=== PATIENT | female | born 1950 | race Caucasian/White ===

== ENCOUNTER → 2023-12-10 09:39 | Outpatient (REF) | payer MEDICARE, SELFPAY | LOC: RAD 09:39 | PROVIDERS: ATTENDING PHYSICIAN Family Medicine | DX: R22.9 Localized swelling, mass and lump, unspecified (principal) | CPT/HCPCS: 93931 ==

== ENCOUNTER → 2024-03-13 06:55 | Outpatient (REF) | payer MEDICARE, SELFPAY | LOC: WDC 06:55 | PROVIDERS: ATTENDING PHYSICIAN Obstetrics & Gynecology; FAMILY PHYSICIAN Family Medicine | DX: Z12.31 Encounter for screening mammogram for malignant neoplasm of breast (principal) | CPT/HCPCS: 77063; 77067 ==

== ENCOUNTER → 2024-04-13 06:49 | Outpatient (REF) | payer MEDICARE, SELFPAY | LOC: RCS 06:49 | PROVIDERS: ATTENDING PHYSICIAN Internal Medicine Interventional Cardiology; FAMILY PHYSICIAN Family Medicine | DX: R00.2 Palpitations (principal); R42 Dizziness and giddiness | CPT/HCPCS: 93306 ==

== ENCOUNTER → 2024-04-22 06:56 | Outpatient (REF) | payer MEDICARE, SELFPAY | LOC: RCS 06:56 | PROVIDERS: ATTENDING PHYSICIAN Internal Medicine Interventional Cardiology; FAMILY PHYSICIAN Family Medicine | DX: R00.2 Palpitations (principal); R42 Dizziness and giddiness; R07.89 Other chest pain | CPT/HCPCS: 78452; 93017; A9500 ==

== ENCOUNTER → 2024-06-19 06:44 | Outpatient (REF) | payer MEDICARE, SELFPAY ==
[2024-06-19 08:03] LABS: ALT (SGPT) 68 U/L (0-35); AST (SGOT) 54 U/L (14-36); Albumin 4.6 g/dl (3.5-5.0); Alkaline Phosphatase 60 U/L (38-126); Blood Urea Nitrogen 12 mg/dl (7-17); Calcium 9.7 mg/dl (8.4-10.2); Carbon Dioxide 27 mmol/L (22-30); Chloride 94 mmol/L (98-107); Glucose 96 mg/dl (70-99); HDL Cholesterol 73 mg/dl; LDL Cholesterol, Calculated 119 mg/dl; Potassium 4.9 mmol/L (3.5-5.1); Sodium 135 mmol/L (135-145); Total Bilirubin 0.3 mg/dl (0.2-1.3); Total Cholesterol 212 mg/dl (50-199); Total Protein 7.5 g/dl (6.3-8.2); Triglyceride 102 mg/dl (10-149); Very Low Density Lipoprotein 20 mg/dl (0-30); eGFR > 60.00
[2024-06-19 09:03] LABS: Glycohemoglobin (HgbA1c) 5.7 % (4.0-5.6)
[2024-06-19 10:45] LABS: CRP, Highly Sensitive < 0.34 mg/L
[2024-06-21 01:47] LABS: Apolipoprotein B 110 mg/dL (60-117)
[2024-06-21 02:16] LABS: Lipoprotein a (Lp a) 76 mg/dL (<=29)
== END ==
LOC: REG 06:44
PROVIDERS: ATTENDING PHYSICIAN Internal Medicine Interventional Cardiology; FAMILY PHYSICIAN Family Medicine
DX: E78.2 Mixed hyperlipidemia (principal); R73.09 Other abnormal glucose; Z82.49 Family history of ischemic heart disease and other diseases of the circulatory system
CPT/HCPCS: 36415; 80053; 80061; 82172; 83036; 83695; 86141

== ENCOUNTER → 2024-09-21 07:34 | Outpatient (REF) | payer MEDICARE, SELFPAY | LOC: RAD 07:34 | PROVIDERS: ATTENDING PHYSICIAN Family Medicine | DX: R74.8 Abnormal levels of other serum enzymes (principal) | CPT/HCPCS: 76700 ==

== ENCOUNTER → 2024-09-28 07:38 | Outpatient (REF) | payer MEDICARE, SELFPAY | LOC: RAD 07:38 | PROVIDERS: ATTENDING PHYSICIAN Family Medicine | DX: J90 Pleural effusion, not elsewhere classified (principal); R05.3 Chronic cough | CPT/HCPCS: 71046 ==

== ENCOUNTER → 2024-12-11 07:19 | Outpatient (REF) | payer MEDICARE, SELFPAY | LOC: PAVMRI 07:19 | PROVIDERS: ATTENDING PHYSICIAN Family Medicine | DX: R74.8 Abnormal levels of other serum enzymes (principal); K76.9 Liver disease, unspecified | CPT/HCPCS: 74183; A9575 ==

== ENCOUNTER → 2025-03-17 08:10 | Outpatient (REF) | payer MEDICARE, SELFPAY | LOC: WDC 08:10 | PROVIDERS: ATTENDING PHYSICIAN Obstetrics & Gynecology; FAMILY PHYSICIAN Family Medicine | DX: Z12.31 Encounter for screening mammogram for malignant neoplasm of breast (principal) | CPT/HCPCS: 77063; 77067 ==

== ENCOUNTER → 2025-07-06 06:33 | Outpatient (REF) | payer MEDICARE, SELFPAY | LOC: MRI 06:33 | PROVIDERS: ATTENDING PHYSICIAN Specialist; FAMILY PHYSICIAN Family Medicine | DX: R79.89 Other specified abnormal findings of blood chemistry (principal) | CPT/HCPCS: 74181; 76391 ==

== ENCOUNTER → 2025-07-15 08:37 | Outpatient (REF) | payer MEDICARE, SELFPAY | LOC: WDC 08:37 | PROVIDERS: ATTENDING PHYSICIAN Obstetrics & Gynecology; FAMILY PHYSICIAN Family Medicine | DX: R92.2 Inconclusive mammogram (principal) | CPT/HCPCS: 76641 ==

== ENCOUNTER → 2025-07-28 07:27 | Outpatient (REF) | payer MEDICARE, SELFPAY | LOC: RAD 07:27 | PROVIDERS: ATTENDING PHYSICIAN Internal Medicine Critical Care Medicine; FAMILY PHYSICIAN Family Medicine | DX: R05.3 Chronic cough (principal); J47.9 Bronchiectasis, uncomplicated | CPT/HCPCS: 71250 ==

== ENCOUNTER 2025-08-21 10:30 | Inpatient (IN) | payer MEDICARE, SELFPAY ==
[2025-08-21] VITALS (15 sets, daily range): BP systolic 94–165; BP diastolic 58–88; BMI 15.9; BMI 15.4
--- NOTE | 2025-08-21 06:19 | ED.GENMED ---
History of Present Illness
General
Chief Complaint: Abdominal Pain
Source: patient
Time Seen by Provider: 08/21/25 06:05
History of Present Illness
History of Present Illness:
75-year-old female presents to the emergency room complaining of abdominal pain. Symptoms began approximately 4 days ago. Pain seems most significant in the left lower quadrant but it is diffuse. Pain has a colicky nature to it. Patient has
anorexia but has not vomited. No fever, chills, urinary symptoms. Sometime the pain becomes significant enough that she feels as if she might pass out amd she has had a couple episodes of syncope.
Phy Exam
Physical Exam
Physical Exam:
General: Awake, Alert, Oriented X3. No acute distress.
Vitals: unremarkable
Head: Atraumatic
Eyes: Pupils equal, EOMI
Throat: Airway intact, no exudates, dry mucosa
Neck: Trachea midline
Lungs: Clear and equal b/l
Heart: Regular rate, no murmurs
Abd: Soft, mild tenderness to palpation left lower quadrant, No pulsatile mass
Neuro: Nonfocal
Skin: Warm, dry, no rash
Extremities: pulses equal b/l, no edema
Sepsis
Sepsis Screening
Sepsis Assessment: Sepsis Ruled Out
Sepsis Screen
Sepsis Screen: Sepsis Ruled Out
Date: 08/21/25
Time: 14:26
Course
Orders/Labs/Results
Orders:
Orders
08/21/25 06:16
IV Insert/Care/Rem.- Treatment PRN
08/21/25 06:17
CT Abd/pel W Iv And Oral Contr Urgent
Comment:
Reason For Exam: llq abd pain, nausea
HYDROmorphone [Dilaudid] 0.5 mg IV NOW STA
Iohexol [Omnipaque] See Protocol PO NOW STA
Ondansetron Injectable [Zofran] 4 mg IV NOW STA
08/21/25 06:18
Lactated Ringers [Lr] 1,000 ml IV BOLUS
08/21/25 06:24
Complete Blood Count/With Diff Urgent
Comprehensive Metabolic Panel Urgent
Lactate Level [Lactic Acid] Urgent
Lipase Urgent
08/21/25 08:00
Lactated Ringers [Lr] 1,000 ml IV 250 mls/hr
08/21/25 10:00
Admit/Transfer Patient As Directed
Co-Sign Provider:
Level of Care: Inpatient admission
Assign to:: Medical/Surgical
Physician / Group: Hospitalist
Diagnosis: Bowel obstruction
Reason for Hospitalization: Bowel obstruction
Expected length of stay greater than two midnights?: Yes
ELOS- Estimated Length of Stay in days: 3
I certify the patient meets the requirements for IP care: Yes
08/21/25 10:12
PRN Pain Medication Management As Directed
May give lesser potent ordered pain med per pt: Yes
preference::
Protocol:: Medication orders for pain may be administered in a
manner that supports deferring to patient preference
when the pt is:
- Requesting an ordered lesser potent pain medication.
Least to most potent pain medications are defined
as: acetaminophen < NSAID < tramadol < opioids
(morphine, oxycodone, hydromorphone).
- Requesting a lesser dose of the same medication IF
ORDERED.
- Requesting a less intrusive route of administration
if both routes are prescribed by the provider (PO <
IV).
08/21/25 10:16
Code Status As Directed
Resuscitation Status: Full Code
08/21/25 10:30
Urinalysis Urgent
Date Specimen was Collected: 08/21/25
Time Specimen was Collected: 10:18
Urine Microscopic Urgent
Date Specimen was Collected: 08/21/25
Time Specimen was Collected: 10:18
11/22/25 10:36
Lactic Acid Urgent
08/21/25 12:02
HYDROmorphone [Dilaudid] 0.25 mg IV Q4HPRN PRN
08/21/25 12:02
DX Deep Vein Thrombosis Video Routine
08/21/25 16:30
Lactate Level [Lactic Acid] Q6H
08/21/25 18:00
Enoxaparin Sodium [Lovenox] 40 mg SC QPM
08/22/25 00:02
Lactate Level [Lactic Acid] Q6H
Abnormal Lab Results
08/21/25 08/21/25
06:24 10:30
MCH 31.3 H pg
(27.0-31.0)
Absolute Neuts (auto) 7.3 H 10^3/uL
(1.4-6.5)
Absolute Lymphs (auto) 0.6 L 10^3/uL
(1.2-3.4)
Absolute Monos (auto) 0.7 H 10^3/uL
(0.1-0.6)
Neutrophils % 84.8 H %
(42.2-75.2)
Lymphocytes % 6.5 L %
(20.5-51.1)
Sodium 130 L mmol/L
(135-145)
Potassium 5.5 H mmol/L
(3.5-5.1)
Chloride 90 L mmol/L
(98-107)
BUN 49 H mg/dl
(7-17)
Glucose 122 H mg/dl
(70-99)
Lactic Acid 2.5 H mmol/L
(0.7-2.0)
Total Protein 8.4 H g/dl
(6.3-8.2)
Urine Ketones 1+ A
(Negative)
Urine Occult Blood 2+ A
(Negative)
Urine Bacteria Few A
(Negative)
Urine Albumin 2+ A
(Neg - Trace)
08/21/25 06:24
08/21/25 06:24
Vital Signs
Initial and Last Documented VS:
Initial Vital Signs
Pulse Resp BP
102 14 94/68
08/21/25 05:39 08/21/25 05:39 08/21/25 05:39
Last Documented Vital Signs
Temp Pulse Resp BP Pulse Ox
97.5 F 85 16 165/88 98
08/21/25 12:30 08/21/25 12:30 08/21/25 12:30 08/21/25 12:30 08/21/25 12:30
MDM/Problems Addressed
Differential Diagnosis Includes:
Diverticulitis, bowel obstruction, kidney stone, ischemic bowel
MDM/Problems Addressed:
Patient presents with abdominal discomfort. CT findings suggestive of a high-grade small bowel obstruction. Patient is not vomiting so no NG tube at this time. Reconsider if patient starts vomiting. Case discussed with Dr. Tai is on-call for
general surgery. Admit to hospitalist. Patient clearly dehydrated both clinically and by elevated BUN. Liter of LR given in LR infusion started
*Radiology
Radiology exam reviewed: radiology read reviewed
*Pulse Oximetry
Oxygen Mode of Delivery: Room air
Patient hypoxic: no
*Critical Care Note
Total Time (30-74mins, 75-104mins- exclusive of procedures): Not Applicable
ED Attending Note
-
Portions of this chart may have been created with voice recognition software.� Occasional wrong word or��sound alike� substitutions may have occurred due to the inherent limitations of voice recognition software.
Discharge Plan
Departure
Patient Disposition: Admit
Date of Disposition: 08/21/25
Time of Disposition: 09:38
Admit to: Med/Surg
Presentation/result/management discussed w/ accepting MD/DO: Hospitalist
Condition: Fair
Discharge Problem:
Small bowel obstruction
Interventions
Interventions:
*Risk Screen - Suicide Last Done: 08/21/25 12:45
*General Assessment Last Done: 08/21/25 05:39
*Neglect/Abuse Screening Last Done: 08/21/25 05:39
*ED- Fall Risk Assessment Last Done: 08/21/25 06:18
*ED COVID-19 Vaccine History Last Done: 08/21/25 12:45
*ED Influenza Vaccine History Last Done: 08/21/25 06:18
*Nursing Disposition Last Done: 08/21/25 11:57
ZJ-Hmvfcz-Bdknrqmbhs Assessment Last Done: 08/21/25 07:46
Discharge Date and Time
Discharge Date/Time: 08/21/25 11:58
[2025-08-21 06:35] LABS: Hematocrit 44.1 % (37.0-47.0); Hemoglobin 14.6 g/dL (12.0-16.0); Mean Corp Hgb Conc. 33.1 g/dL (33.0-37.0); Mean Corpuscular Volume 94.4 fL (81.0-99.0); Nucleated Red Blood Cells % 0 %; Platelet Count 331 10^3/uL (130-400); Red Cell Dist. Width 12.4 % (11.5-14.5)
[2025-08-21] MEDS: OMNIPAQUE 50 ML PO (06:38)
[2025-08-21] MEDS: DILAUDID 0.5 MG IV (06:38)
[2025-08-21] MEDS: ZOFRAN 4 MG IV (06:39)
[2025-08-21] MEDS: LR 1000 IV ×2 (06:39→07:45)
[2025-08-21 06:52] LABS: ALT (SGPT) 33 U/L (0-35); AST (SGOT) 31 U/L (14-36); Albumin 4.9 g/dl (3.5-5.0); Alkaline Phosphatase 62 U/L (38-126); Blood Urea Nitrogen 49 mg/dl (7-17); Calcium 9.5 mg/dl (8.4-10.2); Carbon Dioxide 28 mmol/L (22-30); Chloride 90 mmol/L (98-107); Estimated Creatinine Clearance 32 ml/min; Glucose 122 mg/dl (70-99); Lipase 74 U/L (23-300); Potassium 5.5 mmol/L (3.5-5.1); Sodium 130 mmol/L (135-145); Total Protein 8.4 g/dl (6.3-8.2); eGFR 59.49
--- NOTE | 2025-08-21 10:22 | HPS.HSE ---
Addendum entered and electronically signed by Lucas Rich MD 08/21/25 11:57:
I personally performed a history and physical exam of the patient and discussed management with the resident. I reviewed the resident's note and agree with the documented findings and plan of care HPI/CC.
75-year-old female with abdominal pain colicky off-and-on. Patient states that she has had this similar pain in the past last 1 was over a year ago got better at home and never needed hospitalization.
Patient is awake alert not in any acute distress
Cardiovascular system S1-S2 appreciated
Chest clear to auscultation
Abdomen soft and nontender, no bowel sounds
no pedal edema
#SBO
Transition point in the right lower quadrant
Likely secondary to adhesions from previous surgeries or endometriosis
No vomiting. Hold off on NG tube unless patient vomits.
CAT scan reviewed no distention of stomach.
Surgery consulted
Check x-ray of the abdomen tomorrow
# Hypokalemia-repeat BMP
# Hyponatremia-likely hypovolemic-D5 normal saline and repeat BMP
# Mild lactic acidosis-likely secondary to nausea and vomiting-trend lactate
# Hyperlipidemia-hold rosuvastatin
# Anxiety and depression-Hold amitriptyline
# DVT prophylaxis-Lovenox
# Full code
Part of this note was created using voice recognition system. Occasional wrong word or��sound alike� substitutions may have inadvertently occurred due to the inherent limitations of voice recognition software. If noted kindly bring it to my
attention for correction.
Original Note:
Family Physician
-
Family Physician: Sharla Mike
Chief Complaint
-
Abdominal pain
History of Present Illness
75-year-old female with history of anxiety/depression, hyperlipidemia presents today complaining of abdominal pain. Patient reports symptoms began 3 days ago with colicky, diffuse abdominal pain more in the left lower quadrant. She notes that
sometimes the pain becomes severe enough that she feels she might pass out. Patient admits to be nauseous in the past 3 days. She notes of decreased appetite and unable to eat solid foods because she felt nauseous. She denies nausea, fever,
chills, urinary symptoms. In the ED patient was given LR 250ml/hr and Dilaudid IV. She is AO x 3, comfortable and conversant. She had similar episode a year ago which resolved on its own.
Medical History
Past Medical History
Past Medical History: Reports Hypercholesterolemia and Psychiatric
Past Surgical History: Reports Gynocological (Hysteroscopy , D&C)
Social History
Tobacco: Non-smoker
Alcohol: None
Drug: None
Personal:
Living: With Family
Employment: Retired
Family History
Family History: Not pertinent
Allergies / Home Medications
Allergies reflects when Allergies were last updated in [facility].
Home Medications with original date entered in [employer]
Allergy/Medication List:
Allergies
Allergy/AdvReac Type Severity Reaction Status Date / Time
cephalexin Allergy Rash Verified 08/21/25 06:37
Cephalosporins Allergy Pharmacy Verified 08/21/25 06:37
to Review
Penicillins Allergy Rash Verified 08/21/25 06:37
Sulfa (Sulfonamide Allergy rash, Verified 08/21/25 06:37
Antibiotics) chest
tightness
Home Medications
amitriptyline 25 mg tablet 35 mg PO HS 08/21/25
rosuvastatin 1 tab PO HS 08/21/25
Review of Systems
-
History Source: Patient
A 12 point ROS was completed and negative except as noted: Yes
Abdomen/GI: Reports Abdominal Pain and Nausea
Physical Exam
Vital Signs
Vital Signs
Temp Pulse Resp BP Pulse Ox
97.7 F 74 15 129/69 100
08/21/25 06:15 08/21/25 09:15 08/21/25 09:15 08/21/25 09:00 08/21/25 08:00
Physical Exam
General: Comfortable and Conversant
HEENT: NormoCephalic, Anicteric and Other (Dry mucous membrane)
Respiratory: Clear
Cardiac: S1/S2 and Regular Rhythm
GI: Soft, Non Distended, Tender (mild LLQ, received IV Dilaudid in ED), No Hepatosplenomegaly and Other; No Normal Bowel Sounds (Hypoactive bowel sounds)
Musculoskeletal: No Clubbing, No Cyanosis and No Edema
Skin: Warm and Dry
Neuro: AO x 3
Hematologic/Lymphatic: No Lymphadenopathy
Psych: Calm
Laboratory Results
-
08/21/25 06:24
08/21/25 06:24
Laboratory Results
Lactic Acid 2.5 mmol/L (0.7-2.0) H 08/21/25 06:24
Total Bilirubin 0.6 mg/dl (0.2-1.3) 08/21/25 06:24
AST 31 U/L (14-36) 08/21/25 06:24
ALT 33 U/L (0-35) 08/21/25 06:24
Alkaline Phosphatase 62 U/L (38-126) 08/21/25 06:24
Lipase 74 U/L (23-300) 08/21/25 06:24
Data Reviewed
-
CT Scan: Report Reviewed by me and Discussed with Physician
Lab Data: Labs Reviewed by me and Discussed with Physician
Impression/Plan
-
IMPRESSION:
Acute small bowel obstruction
Nausea
Decreased appetite
Lactic acidosis
Hypovolemic hyponatremia
Hyperkalemia
Hyperlipidemia
History of anxiety/depression
History of endometriosis
PLAN:
Acute small bowel obstruction
D/D- adhesions (prior procedure - hysteroscopy for endometriosis), impacted stool
Afebrile, normal white count
+ Bowel movement + passing gas
CT of abdomen and pelvis reveals high-grade small bowel obstruction with transition point in right lower quadrant.
NPO. Continue LR 100ml/hr.
Will eventually switch to D5 normal saline.
IV Dilaudid 0.25 mg every 6 as needed for pain control
Would benefit from NG tube for decompression
Consult surgery
Nausea
IV Zofran as needed
Monitor
Decreased appetite
Due to bowel obstruction
NPO. Continue LR 100ml/hr
Lactic acidosis
Likely due to acute bowel obstruction
Lactic acid 2.5, 2.3
Trend lactic acid
Hypovolemic hyponatremia
Dry mucous membrane likely due to dehydration
Continue lactate ringer
Will eventually switch to D5 normal saline- more hypertonic
Monitor BMP
Hyperkalemia
K 5.5. Continue LR
Monitor BMP
Hyperlipidemia
Hold rosuvastatin
History of anxiety/depression
Hold amitriptyline
Full code
NPO
Lovenox
[2025-08-21 10:42] LABS: Urine Character Clear (Clear)
[2025-08-21 10:55] LABS: Urine Red Blood Cell 0-2 /HPF (0-2)
--- NOTE | 2025-08-21 11:11 | CM ---
Patient seen at bedside in ED. Patient states that she lives with her in a one story home. Patient stated that she has no DME and her PCP is Dr. Mike, and uses [facility] in [facility] for her pharmacy needs. Patient indicated that she
did not anticipate any needs for discharge at this time. CM will continue to follow for discharge planning needs.
Plan; home with spouse, watch for any VN needs.
[2025-08-21] MEDS: D5/0.9% SODIUM CHLORIDE 1000 IV ×2 (13:02→23:57)
[2025-08-21] MEDS: OFIRMEV 60 MG IV (13:59)
--- NOTE | 2025-08-21 14:29 | PTCARENOTE ---
The patient presented from ER. VSS afebrile. the patient denied any pain. PT aaox3 Lungs CTA no coughing no sob. HRR +BB no edema. pt denies any cp so or palpitations. 96% on room air. abd soft hypoactive NT Slight distention. pt stated she had bm
today an minimal flatus. no nausea. I explained they ordered an NGT. i educated her on its role purpose and how it would benefit her. She told me she does not care what the doctor ordered but does not want it and would prefer surger. I did let
surgery know, they spoke with her and said the same thing. Pt inc of urine with stress incontinence. PT oob from stretcher with no assist steady. pt is fall risk as she had a recent fall. Bed alarm on . PT was oriented to unit fall risk protocol
and understood how to call for nurses
--- NOTE | 2025-08-21 15:20 | CON.GS ---
Consultation
-
Date/Time Consultation Performed: 08/21/25 1415
Medical History
-
Chief Complaint: abdominal pain
History of Present Illness:
Ms Hayes is a 75 yo female with a h/o breast cancer s/p right mastectomy and endometriosis with prior ex lap (Pfannenstiel) in the in management who presents with cramping abdominal pain which comes in waves over the last 3-4 days. She was
able to pass a small bm this morning but has not been passing flatus for several days. She denies nausea or vomiting but has not been eating for the last 3 days. She does note intermittent belching. She denies fevers or chills. She has had similar
pain about 1 year ago but it was of shorter duration and self limiting. On exam, mild tenderness noted to lower abdomen with distention present.
Past Medical History
Past Medical History: CAD (nonocclusive), Cancer (breast), Hypercholesterolemia and Other (fibromyalgia, bronchiectasis, )
Past Surgical History: Gynecological (ex lap (Pfannenstiel) in the for endometriosis, hysteroscopy 2009) and Other (right mastectomy. last colonoscopy 2010 with q3 year [facility] guard since)
Social History
Tobacco: Non-Smoker
Alcohol: None
Drug: None
Family History
Family History: Reviewed & Not Pertinent
Allergies / Home Medications
Allergy/AdvReac Type Severity Reaction Status Date / Time
cephalexin Allergy Rash Verified 08/21/25 06:37
Cephalosporins Allergy Pharmacy Verified 08/21/25 06:37
to Review
Penicillins Allergy Rash Verified 08/21/25 06:37
Sulfa (Sulfonamide Allergy rash, Verified 08/21/25 06:37
Antibiotics) chest
tightness
�Medication �Instructions �Recorded �Confirmed �Type
amitriptyline 25 mg tablet 35 mg PO HS Mental Health/Anxiety 08/21/25 08/21/25 History
rosuvastatin 20 mg tablet 20 mg PO HS High Cholesterol 08/21/25 08/21/25 History
Review of Systems
-
History Source: Patient
All other systems: Negative unless noted
A 10 point review of systems was completed, and was negative except as per HPI.
Physical Exam
Vital Signs
Temp Pulse Resp BP Pulse Ox
97.5 F 85 16 165/88 98
08/21/25 12:30 08/21/25 12:30 08/21/25 12:30 08/21/25 12:30 08/21/25 12:30
08/20/25 08/21/25 08/22/25
06:59 06:59 06:59
Actual Weight 40.7 kg 39.519 kg
Body Mass Index (BMI) 15.4
Lab Results
08/21/25 06:24
WBC 8.6 10^3/uL (4.8-10.8) 08/21/25 06:24
Hgb 14.6 g/dL (12.0-16.0) 08/21/25 06:24
Hct 44.1 % (37.0-47.0) 08/21/25 06:24
Plt Count 331 10^3/uL (130-400) 08/21/25 06:24
Abs Immat Gran (auto) 0.0 10^3/uL (0-0.05) 08/21/25 06:24
Neutrophils % 84.8 % (42.2-75.2) H 08/21/25 06:24
Physical Exam
General: Other (underweight); Negative Comfortable
HEENT: Moist Mucous Membranes
Respiratory: Non Labored Respirations
GI: Soft, Tender (mild to BLLQ), Distended and Other (no rigidity or guarding)
Skin: Warm and Dry
Neuro: Awake, Alert and AO x 3
Psych: Calm
Data Reviewed
-
CT Scan: Image Personally Visualized and interpreted, Report Reviewed by me, Discussed with Physician, Discussed with Nurse and Discussed with Patient
Labs: Labs Reviewed by me, Discussed with Physician and Discussed with Patient
Old Records: Reviewed
Assessment / Plan
-
Ms Hayes is a 75 yo female with a h/o breast cancer s/p right mastectomy and endometriosis with prior ex lap (Pfannenstiel) in the 1979' in management who presents with cramping abdominal pain which comes in waves over the last 3-4 days. She
denies nausea or vomiting but has not been eating for the last 3 days. She does note intermittent belching. Sm bm today but not passing flatus. AFVSS. Lactic acid elevated on presentation, trending down with IVF's. Electrolyte derangements on
arrival with hyponatremia and hyperkalemia with bun/cr ratio consistent with dehydration/hypovolemia. CT imaging reviewed and consistent with high grade small bowel obstruction with transition point in the RLQ. No evidence of bowel threat compromise
but significant small bowel and gastric distention present. Suspect obstruction is secondary to adhesions from prior surgery.
Plan:
Recommend NGT placement; however, pt currently declining. She notes she may reconsider if she develops n/v. Reviewed benefit of NGT and risks of declining including risk for aspiration.
IVF as per primary team
Repeat labs pending this afternoon, will check labs in AM as well
Keep NPO for bowel rest
ABD Xr in AM
Ofirmev, dilaudid prn for pain. zofran prn for nausea
No emergent surgery planned, will follow with nonoperative measures for improvement for now
[2025-08-21] MEDS: LOVENOX 40 MG SC (16:55)
[2025-08-21] MEDS: DILAUDID 0.25 MG IV ×2 (17:18→21:28)
[2025-08-21 17:39] LABS: Blood Urea Nitrogen 31 mg/dl (7-17); Calcium 8.7 mg/dl (8.4-10.2); Carbon Dioxide 30 mmol/L (22-30); Chloride 94 mmol/L (98-107); Estimated Creatinine Clearance 52 ml/min; Glucose 105 mg/dl (70-99); Potassium 4.7 mmol/L (3.5-5.1); Sodium 128 mmol/L (135-145); eGFR > 60.00
[2025-08-21] MEDS: D5/0.9% SODIUM CHLORIDE IV ×2 (23:48→23:57)
[2025-08-22] MEDS: DILAUDID 0.25 MG IV ×5 (01:29→20:18)
[2025-08-22 07:05] VITALS: BP 153/82
[2025-08-22] MEDS: PROTONIX IV 40 MG IV (07:37)
[2025-08-22] MEDS: NSS (PRESERVATIVE FREE) 10 ML IV (07:37)
[2025-08-22 08:32] LABS: Hematocrit 40.3 % (37.0-47.0); Hemoglobin 13.2 g/dL (12.0-16.0); Mean Corp Hgb Conc. 32.8 g/dL (33.0-37.0); Mean Corpuscular Volume 95.5 fL (81.0-99.0); Nucleated Red Blood Cells % 0 %; Platelet Count 303 10^3/uL (130-400); Red Cell Dist. Width 12.4 % (11.5-14.5)
[2025-08-22 08:52] LABS: Blood Urea Nitrogen 26 mg/dl (7-17); Calcium 8.9 mg/dl (8.4-10.2); Carbon Dioxide 30 mmol/L (22-30); Chloride 98 mmol/L (98-107); Estimated Creatinine Clearance 52 ml/min; Glucose 110 mg/dl (70-99); Potassium 4.5 mmol/L (3.5-5.1); Sodium 133 mmol/L (135-145); eGFR > 60.00
[2025-08-22 09:12] LABS: Cortisol, Random 29.8 ug/dl
[2025-08-22] MEDS: D5/0.9% SODIUM CHLORIDE 1000 IV ×2 (10:03→20:49)
[2025-08-22] MEDS: DULCOLAX 10 MG RECTAL (12:06)
--- NOTE | 2025-08-22 13:11 | W.PN.GS2 ---
Today's Communication / Plan
-
ngt insertion
npo
Assessment / Plan
-
75 yo female with a h/o breast cancer s/p right mastectomy and endometriosis with prior ex lap (Pfannenstiel) in the in management who presents with cramping abdominal pain which comes in waves over the last 3-4 days. She denies nausea or
vomiting but has not been eating for the last 3 days. She does note intermittent belching. Sm bm today but not passing flatus. AFVSS. Lactic acid elevated on presentation, trending down with IVF's. Electrolyte derangements on arrival with
hyponatremia and hyperkalemia with bun/cr ratio consistent with dehydration/hypovolemia. CT imaging reviewed and consistent with high grade small bowel obstruction with transition point in the RLQ. No evidence of bowel threat compromise but
significant small bowel and gastric distention present. Suspect obstruction is secondary to adhesions from prior surgery.
vitals normal
WBC: 5.5, Hgb 13.2
-Refused NGT initially but willing to attempt today. Hurricane spray prior to NGT placement.
-No ice chips or sips.
-Continue IVFs
-Abdominal xray from this AM reviewed, showing persistent SBO
-No plans for surgery at this time
Subjective Data
-
Date of Service: August 22, 2025
Patient states she has pain 'all over'. She is a little quesy but has no vomiting. Denies bowel movements but has flatus. She has some burping.
Objective Data
-
Intake and Output
08/21/25 08/22/25 08/23/25
06:59 06:59 06:59
Intake Total 1999
Output Total 300 / 300
Balance 1700 / 1700
Intake:
IV fluids (Total) 1999
Output:
Urine, Voided 300 / 300
Other:
How many times incontinent 1
MODERATE amount urine
Vital Signs
Temp Pulse Resp BP Pulse Ox
98.2 F 82 21 153/82 99
08/22/25 07:05 08/22/25 07:05 08/22/25 07:05 08/22/25 07:05 08/22/25 07:05
Lab Results
08/22/25 07:26
08/22/25 07:26
Calcium 8.9 mg/dl (8.4-10.2) 08/22/25 07:26
Total Bilirubin 0.6 mg/dl (0.2-1.3) 08/21/25 06:24
AST 31 U/L (14-36) 08/21/25 06:24
ALT 33 U/L (0-35) 08/21/25 06:24
Alkaline Phosphatase 62 U/L (38-126) 08/21/25 06:24
Total Protein 8.4 g/dl (6.3-8.2) H 08/21/25 06:24
Albumin 4.9 g/dl (3.5-5.0) 08/21/25 06:24
Physical Exam
-
aaox3
abdomen: Soft, mildly tender throughout, Distended
--- NOTE | 2025-08-22 13:16 | W.PN.HOSP.TC ---
Today's Communication/Plan
-
NGT
IVF
X ray in am
Assessment / Plan
Assessment / Plan
75-year-old female with abdominal pain colicky off-and-on. Patient states that she has had this similar pain in the past last 1 was over a year ago got better at home and never needed hospitalization.
Patient is awake alert not in any acute distress
Cardiovascular system S1-S2 appreciated
Chest clear to auscultation
Abdomen soft and nontender, no bowel sounds
no pedal edema
#SBO
Transition point in the right lower quadrant
Likely secondary to adhesions from previous surgeries or endometriosis
No vomiting.
X ray with persistent obstruction
NGT placement today
Surgery consulted and following
Check x-ray of the abdomen tomorrow
# Hypokalemia-Better
# Hyponatremia-likely hypovolemic-D5 normal saline and repeat BMP
# Mild lactic acidosis-likely secondary to nausea and vomiting-
# Hyperlipidemia-hold rosuvastatin
# Anxiety and depression-Hold amitriptyline
# DVT prophylaxis-Lovenox
# Full code
D/W at bed side
D/W RN
D/W SUrgeon
Anticipated Discharge: 24 - 48 hours
Subjective/Interval History
-
Date of Service: August 22, 2025
Objective Data
-
Labs:
Laboratory Results
08/22/25
07:26
WBC 5.5
Hgb 13.2
Hct 40.3
Plt Count 303
Sodium 133 L
Potassium 4.5
Chloride 98
Carbon Dioxide 30
BUN 26 H
Creatinine 0.6
Glucose 110 H
Calcium 8.9
Vital Signs:
Vital Signs
Temp Pulse Resp BP Pulse Ox
98.2 F 82 21 153/82 99
11/23/25 07:05 08/22/25 07:05 08/22/25 07:05 08/22/25 07:05 08/22/25 07:05
I&O
08/21/25 08/22/25 08/23/25
06:59 06:59 06:59
Intake Total 1999 / 1999
Output Total 300 / 300
Balance 1700 / 1700
[2025-08-22] MEDS: HURRICAINE SPRAY 1 APPLIC TOPICAL (13:20)
[2025-08-22 15:14] VITALS: BP 167/85
[2025-08-22 15:55] VITALS: BMI 15.4
[2025-08-22] MEDS: LOVENOX 40 MG SC (17:23)
--- NOTE | 2025-08-22 18:22 | PTCARENOTE ---
Pt with order for NG tube placement. Ng tube placed as ordered, pt tolerated well with no complaints. This RN able to auscultate air inserted into NG tube to pt stomach with stethoscope. Dark brown secretions aspirated through tube to confirm
placement as well. Ordering provider made aware and bedside chest xray ordered to confirm placement. Plan of care ongoing, pt with no current needs.
[2025-08-22 23:27] VITALS: BP 158/87
[2025-08-23] MEDS: OFIRMEV 100 IV (03:30)
[2025-08-23 06:24] LABS: Hematocrit 35.8 % (37.0-47.0); Hemoglobin 11.9 g/dL (12.0-16.0); Mean Corp Hgb Conc. 33.2 g/dL (33.0-37.0); Mean Corpuscular Volume 94.0 fL (81.0-99.0); Platelet Count 272 10^3/uL (130-400); Red Cell Dist. Width 12.3 % (11.5-14.5)
--- NOTE | 2025-08-23 06:44 | W.PN.UPDATE ---
Update Note
Progress Note Update
Multiple attempts made overnight to position her NG tube. She appears more comfortable than previous. Denies nausea and is without vomiting.
[2025-08-23 06:58] LABS: Blood Urea Nitrogen 15 mg/dl (7-17); Calcium 8.3 mg/dl (8.4-10.2); Carbon Dioxide 27 mmol/L (22-30); Chloride 101 mmol/L (98-107); Estimated Creatinine Clearance 52 ml/min; Glucose 113 mg/dl (70-99); Potassium 3.4 mmol/L (3.5-5.1); Sodium 133 mmol/L (135-145); eGFR > 60.00
[2025-08-23 07:15] VITALS: BP 135/70
[2025-08-23] MEDS: DILAUDID 0.25 MG IV (08:04)
[2025-08-23] MEDS: NSS (PRESERVATIVE FREE) 10 ML IV (08:05)
[2025-08-23] MEDS: PROTONIX IV 40 MG IV (08:05)
--- NOTE | 2025-08-23 10:40 | W.PN.GS2 ---
Today's Communication / Plan
-
Small bowel follow-through
Assessment / Plan
-
75 yo female with a h/o breast cancer s/p right mastectomy and endometriosis with prior ex lap (Pfannenstiel) in the with resection of endometrial implants, tubal ligation and appendectomy who presents with cramping abdominal pain which comes
in waves over the last 3-4 days consistent with a small bowel obstruction secondary to adhesions from her prior abdominal surgery. First hospitalization for small bowel obstruction, though has had minor 'episodes' that she has managed on her own in
the past.
Continue nonoperative management of her small bowel obstruction: N.p.o., IV fluids, NG tube to low intermittent wall suction.
Will plan for a small bowel follow-through today for both therapeutic and diagnostic purposes.
All questions answered, patient agreeable to plan of care above.
Time Spent
Total Time Spent with Patient (in minutes): 20
Subjective Data
-
Date of Service: August 23, 2025
Interval Events:
No acute events overnight. NG tube advance and repositioned appropriately. I reviewed her morning x-rays myself. Slept okay. Pain Controlled. Denies active nausea/Vomiting, -bowel function.
Objective Data
-
Intake and Output
08/22/25 08/23/25 08/24/25
06:59 06:59 06:59
Intake Total 1999 60 / 60
Output Total 300 / 300 75 / 75
Balance 1700 / 1700 -15 / -15
Intake:
IV fluids (Total) 1999
Amount instilled into GI Tube ( 60 / 60
Total)
[place] Sump 60 / 60
Output:
Gastrointestinal tube output ( 75 / 75
Total)
[place] Sump 75 / 75
Urine, Voided 300 / 300
Other:
How many times incontinent 1
MODERATE amount urine
Number of approximated MODERATE 2
amounts of urine
Vital Signs
Temp Pulse Resp BP Pulse Ox
97.8 F 80 16 135/70 97
08/23/25 07:15 08/23/25 07:15 08/23/25 07:15 08/23/25 07:15 08/23/25 07:15
Lab Results
08/23/25 05:37
08/23/25 05:37
Calcium 8.3 mg/dl (8.4-10.2) L 08/23/25 05:37
Total Bilirubin 0.6 mg/dl (0.2-1.3) 08/21/25 06:24
AST 31 U/L (14-36) 08/21/25 06:24
ALT 33 U/L (0-35) 08/21/25 06:24
Alkaline Phosphatase 62 U/L (38-126) 08/21/25 06:24
Total Protein 8.4 g/dl (6.3-8.2) H 08/21/25 06:24
Albumin 4.9 g/dl (3.5-5.0) 08/21/25 06:24
Physical Exam
-
GENERAL/NEURO: Awake, Alert, no distress
CHEST: Unlabored breathing on RA
ABDOMEN: Soft, Non-Tender, distended
Patient has a laboy catheter: No
Patient has a central line: No
[2025-08-23] MEDS: D5/0.9% SODIUM CHLORIDE 1000 IV (11:13)
--- NOTE | 2025-08-23 12:37 | W.PN.HOSP.TC ---
Today's Communication/Plan
-
see plan
Assessment / Plan
Assessment / Plan
Gen: NAD, AAOx3, appears chronically ill malnourished.
Eyes: EOMI, PERRLA, no scleral icterus.
Neck: supple.
CV: RRR, +S1/S2, no m/r/g.
Resp: CTAB, no rales, wheezes, or rhonchi.
Abd: +BS, soft, NT, mild distention
Skin: No rashes.
Neuro: CN 2-12 intact, non-focal.
Psych: Normal mood and affect.
CT A/P w/IV+PO 08/21: Findings of a high-grade small bowel obstruction with transition point in the right lower quadrant. There is a small nodular focus in the region of the transition point which is favored to represent mucosa. A small lesion is
considered less likely. Stable hemangioma within the posterior right hepatic lobe. Findings of likely chronic/indolent infection (MAC) within the right middle lobe and bilateral lower lobes which is overall similar appearance to prior.
CXR 08/22: The nasogastric tube may be advanced 8 to 9 cm.
Abd Xray 08/22: Findings consistent with persistent small bowel obstruction. Moderate colonic stool burden.
CXR 08/23: Nasogastric tube is present with tip in the medial left upper quadrant within the stomach. Distal sidehole is probably within the distal esophagus. Patchy parenchymal opacity within the right lower lung, similar to most recent radiograph
of August 22, 2025, not present on examination of September 28, 2024. Findings suggest acute to subacute pneumonitis.
Abd Xray 08/23: Radiographic findings suggestive of persistent small bowel obstruction. No evidence of free intraperitoneal air.
Acute SBO:
-likely secondary to adhesions from previous surgeries or endometriosis
-imaging above and showing persistent SBO
-s/p NGT placement
-NPO/IVFs
-check UGIS with SB follow through
-surgery following, appropriate for surgical service, [employer] message sent to Dr. Dixon with this request
Other problems:
Hypokalemia: 40meq IV K
Hyponatremia, mild
Lactic acidosis, resolved
HLD: statin on hold
Anxiety/depression/FMS: holding amitriptyline
Severe protein calories malnutrition
FULL/Lovenox
Anticipated Discharge: > 48 hours
Subjective/Interval History
-
Date of Service: August 23, 2025
Currently without new complaints. Abdominal pain is improving. Has passed flatus.
Objective Data
-
Labs:
Laboratory Results
08/23/25
05:37
WBC 4.6 L
Hgb 11.9 L
Hct 35.8 L
Plt Count 272
Sodium 133 L
Potassium 3.4 L
Chloride 101
Carbon Dioxide 27
BUN 15
Creatinine 0.4 L
Glucose 113 H
Calcium 8.3 L
Vital Signs:
Vital Signs
Temp Pulse Resp BP Pulse Ox
97.8 F 80 16 135/70 97
08/23/25 07:15 08/23/25 07:15 08/23/25 07:15 08/23/25 07:15 08/23/25 07:15
I&O
08/22/25 08/23/25 08/24/25
06:59 06:59 06:59
Intake Total 1999 / 1999 60 / 60
Output Total 300 / 300 75 / 75
Balance 1700 / 1700 -15 / -15
[2025-08-23] MEDS: KCL 270 MEQ IV (13:56)
[2025-08-23 15:30] VITALS: BP 143/78
--- NOTE | 2025-08-23 16:29 | CM ---
Patient seen at bedside on . Patient for possible surgery and physicians to confirm medical treatment plan. Patient would like to return home with VN pending medical treatment. CM will continue to follow for discharge planning needs.
Plan; home with no needs vs home with VN
[2025-08-23] MEDS: LOVENOX 40 MG SC (17:06)
[2025-08-23 23:22] VITALS: BP 127/63
[2025-08-24] MEDS: D5/0.9% SODIUM CHLORIDE 1000 IV ×2 (03:44→22:35)
[2025-08-24 07:00] VITALS: BP 143/71
[2025-08-24] MEDS: PROTONIX IV 40 MG IV (08:10)
[2025-08-24] MEDS: NSS (PRESERVATIVE FREE) 10 ML IV (08:10)
--- NOTE | 2025-08-24 09:12 | W.PN.HOSP.TC ---
Today's Communication/Plan
-
see plan, transfer to Dr. Sarkar's service
Assessment / Plan
Assessment / Plan
Gen: NAD, AAOx3, appears chronically ill malnourished.
Eyes: EOMI, PERRLA, no scleral icterus.
Neck: supple.
CV: remains RRR, +S1/S2, no m/r/g.
Resp: remains CTAB, no rales, wheezes, or rhonchi.
Abd: +BS, soft, NT, minimal distention
Skin: No rashes.
Neuro: CN 2-12 intact, non-focal.
Psych: Normal mood and affect.
CT A/P w/IV+PO 08/21: Findings of a high-grade small bowel obstruction with transition point in the right lower quadrant. There is a small nodular focus in the region of the transition point which is favored to represent mucosa. A small lesion is
considered less likely. Stable hemangioma within the posterior right hepatic lobe. Findings of likely chronic/indolent infection (MAC) within the right middle lobe and bilateral lower lobes which is overall similar appearance to prior.
CXR 08/22: The nasogastric tube may be advanced 8 to 9 cm.
Abd Xray 08/22: Findings consistent with persistent small bowel obstruction. Moderate colonic stool burden.
CXR 08/23: Nasogastric tube is present with tip in the medial left upper quadrant within the stomach. Distal sidehole is probably within the distal esophagus. Patchy parenchymal opacity within the right lower lung, similar to most recent radiograph
of August 22, 2025, not present on examination of September 28, 2024. Findings suggest acute to subacute pneumonitis.
Abd Xray 08/23: Radiographic findings suggestive of persistent small bowel obstruction. No evidence of free intraperitoneal air.
Acute SBO:
-likely secondary to adhesions from previous surgeries or endometriosis
-imaging above and showing persistent SBO
-s/p NGT placement
-NPO/IVFs
-UGIS with SB follow through could not be completed 11/24
-surgery following, appropriate for surgical service, [employer] message sent to Dr. Sarkar with this request and he has agreed to take the pt on his service.
Other problems:
Hypokalemia: s/p 40meq IV K, AM K pending
Hyponatremia, mild
Lactic acidosis, resolved
HLD: statin on hold
Anxiety/depression/FMS: holding amitriptyline
Severe protein calories malnutrition
FULL/Lovenox
Anticipated Discharge: Within 24 hours
Subjective/Interval History
-
Date of Service: August 24, 2025
Pt states she had a large BM and denies abd pain.
Objective Data
-
Vital Signs:
Vital Signs
Temp Pulse Resp BP Pulse Ox
98.3 F 80 16 143/71 100
08/24/25 07:00 08/24/25 07:00 08/24/25 07:00 08/24/25 07:00 08/24/25 07:00
I&O
08/23/25 08/24/25 08/25/25
06:59 06:59 06:59
Intake Total 60 / 60
Output Total 75 / 75
Balance -15 / -15
[2025-08-24 10:02] LABS: Hematocrit 33.6 % (37.0-47.0); Hemoglobin 11.2 g/dL (12.0-16.0); Mean Corp Hgb Conc. 33.3 g/dL (33.0-37.0); Mean Corpuscular Volume 93.1 fL (81.0-99.0); Platelet Count 213 10^3/uL (130-400); Red Cell Dist. Width 12.2 % (11.5-14.5)
[2025-08-24 10:16] LABS: Blood Urea Nitrogen 9 mg/dl (7-17); Calcium 8.3 mg/dl (8.4-10.2); Carbon Dioxide 27 mmol/L (22-30); Chloride 101 mmol/L (98-107); Estimated Creatinine Clearance 52 ml/min; Glucose 90 mg/dl (70-99); Potassium 3.0 mmol/L (3.5-5.1); Sodium 132 mmol/L (135-145); eGFR > 60.00
--- NOTE | 2025-08-24 11:07 | PN.CDI ---
Addendum entered and electronically signed by Fermin Troy MD 08/24/25 12:47:
Documentation complete
Original Note:
CDI
- -
CDI:
Physician Documentation Request
Admit Date: 08/21/25 10:30
Dear Doctor,
Patient admitted for small bowel obstruction.
08/24 Hospitalist PN: 'Gen: NAD, AAOx3, appears chronically ill malnourished...Severe protein calories malnutrition'
Documentation includes the diagnosis of malnutrition.
To ensure the quality of the medical record, based on the above information and the recognized standards for malnutrition, could you please verify in your progress notes which of the following responses best reflects the patient's nutritional status:
Severe protein calorie malnutrition is/was present and is a clinical diagnosis (please provide additional support in the medical record)
Other level of malnutrition is present (Mild, Moderate or Severe)
No nutritional deficiency
Other (please specify)
Unable to determine
[place] Criteria ([facility] Hospitalist 2017)
2 or more criteria must be present for either
non severe or severe malnutrition
Note that the criteria differs related to the
presence of an acute or chronic illness
Acute Illness Chronic Illness
Energy Intake Non Severe: <75% for >7 days Non Severe: <75% for >1 month
Severe: <50% for >5 days Severe: <75% for >1 month
Weight Loss Non Severe: 1-2% over 1 week Non Severe: 5% over 1 month
5% over 1 month 7.5% over 3 months
7.5% over 3 months 10% over 6 months
1 year N/A 20% over 1 year
Severe: >2% over 1 week Severe: >5% over 1 month
>5% over 1 month >7.5% over 3 months
>7.5% over 3 months >10% over 6 months
1 year N/A >20% over 1 year
Body Fat Non Severe: Mild Decrease Non Severe: Mild Loss
Severe: Moderate Decrease Severe: Severe Loss
Muscle Mass Non Severe: Mild Decrease Non Severe: Mild Loss
Severe: Moderate Decrease Severe: Severe Loss
Fluid Accumulation Non Severe: Mild Accumulation Non Severe: Mild Accumulation
Severe: Moderate to severe Severe: Moderate to severe
accumulation accumulation
Reduced [employer]ant Strength Non Severe: N/A Non Severe: N/A
Severe: Measurably reduced Severe: Measurably reduced
Additional criteria that can be used to Determine if Mild or Moderate Malnutrition (Merck Manual 2018)
Mild Moderate Severe
Albumin gm/dl <3.0 gm/dl <2.5 gm/dl <2.0 gm/dl
Pre Albumin mg/dl <15 gm/dl <10 mg/dl <5.0 mg/dl
BMI <18.5 <17 <16
Use of terms such as suspected, likely, concern for, or probable (associated with a specific diagnosis that is being evaluated, monitored, or treated as if it exists) are acceptable and can be coded in the inpatient setting, when documented at the
time of discharge.
Thank you,
Rena Perez RN, BSN
CDI Specialist
Available via [place] text
Please use your independent medical judgment in providing your response.
[2025-08-24] MEDS: KCL 40 MEQ PO (12:46)
--- NOTE | 2025-08-24 13:10 | W.PN.GS2 ---
Today's Communication / Plan
-
Trial cld
Assessment / Plan
-
75F with pSBO likely 2/2 adhesions, resolving
DC NGT
Trial CLD
ADAT to LRD
Dietary education provided
Defer SBFT given clinical improvement
All questions answered, patient agreeable to plan of care above.
Subjective Data
-
Date of Service: August 24, 2025
AFVSS, feels 'back to normal,' passing flatus and BM, denies n/v, ab pain resolved
Objective Data
-
Intake and Output
08/23/25 08/24/25 08/25/25
06:59 06:59 06:59
Intake Total 60 / 60
Output Total 75 / 75
Balance -15 / -15
Intake:
Amount instilled into GI Tube ( 60 / 60
Total)
[place] Sump 60 / 60
Output:
Gastrointestinal tube output ( 75 / 75
Total)
[place] Sump 75 / 75
Other:
Number of approximated MODERATE 2 1
amounts of urine
Number of approximated LARGE 1
amounts of urine
Vital Signs
Temp Pulse Resp BP Pulse Ox
98.3 F 80 16 143/71 100
08/24/25 07:00 08/24/25 07:00 08/24/25 07:00 08/24/25 07:00 08/24/25 07:00
Lab Results
08/24/25 09:35
08/24/25 09:35
Calcium 8.3 mg/dl (8.4-10.2) L 08/24/25 09:35
Total Bilirubin 0.6 mg/dl (0.2-1.3) 08/21/25 06:24
AST 31 U/L (14-36) 08/21/25 06:24
ALT 33 U/L (0-35) 08/21/25 06:24
Alkaline Phosphatase 62 U/L (38-126) 08/21/25 06:24
Total Protein 8.4 g/dl (6.3-8.2) H 08/21/25 06:24
Albumin 4.9 g/dl (3.5-5.0) 08/21/25 06:24
Physical Exam
-
Gen: NAD
Abd: soft, nd, nt
Patient has a laboy catheter: No
Patient has a central line: No
[2025-08-24 13:13] LABS: Magnesium 2.1 mg/dl (1.6-2.3)
[2025-08-24] MEDS: KCL 270 MEQ IV (13:17)
--- NOTE | 2025-08-24 14:08 | CM ---
patient seen at bedside
NGT dc
clear liq diet
IMM explained & signed. In chart
PLAN: Home, no needs when stable
[2025-08-24 15:00] VITALS: BP 154/80
[2025-08-24] MEDS: LOVENOX 40 MG SC (18:28)
[2025-08-24 23:23] VITALS: BP 152/79
[2025-08-25 06:24] LABS: Hematocrit 34.0 % (37.0-47.0); Hemoglobin 11.4 g/dL (12.0-16.0); Mean Corp Hgb Conc. 33.5 g/dL (33.0-37.0); Mean Corpuscular Volume 93.2 fL (81.0-99.0); Platelet Count 251 10^3/uL (130-400); Red Cell Dist. Width 12.0 % (11.5-14.5)
[2025-08-25 07:18] LABS: Blood Urea Nitrogen 4 mg/dl (7-17); Calcium 8.3 mg/dl (8.4-10.2); Carbon Dioxide 27 mmol/L (22-30); Chloride 99 mmol/L (98-107); Estimated Creatinine Clearance 52 ml/min; Glucose 102 mg/dl (70-99); Potassium 3.2 mmol/L (3.5-5.1); Sodium 129 mmol/L (135-145); eGFR > 60.00
[2025-08-25 07:24] VITALS: BP 145/74
[2025-08-25] MEDS: NSS (PRESERVATIVE FREE) 10 ML IV (07:40)
[2025-08-25] MEDS: PROTONIX IV 40 MG IV (07:43)
[2025-08-25] MEDS: D5/0.9% SODIUM CHLORIDE IV (09:01)
--- NOTE | 2025-08-25 09:07 | W.PN.GS2 ---
Today's Communication / Plan
-
DC
Assessment / Plan
-
75F with pSBO likely 2/2 adhesions, resolved
Cont LRD
Dietary education provided
All questions answered, patient agreeable to DC home today.
Subjective Data
-
Date of Service: August 25, 2025
AFVSS, ambulating, voiding, passing flatus, denies n/v, norberto LRD
Objective Data
-
Intake and Output
08/24/25 08/25/25 08/26/25
06:59 06:59 06:59
Intake Total 620 / 620
Balance 620 / 620
Intake:
Oral fluids 620 / 620
Other:
Number of approximated MODERATE 1 1
amounts of urine
Number of approximated LARGE 1 2
amounts of urine
Vital Signs
Temp Pulse Resp BP Pulse Ox
97.6 F 73 18 145/74 94
08/25/25 07:24 08/25/25 07:24 08/25/25 07:24 08/25/25 07:24 08/25/25 07:24
Lab Results
08/25/25 06:01
08/25/25 06:01
Calcium 8.3 mg/dl (8.4-10.2) L 08/25/25 06:01
Magnesium 2.1 mg/dl (1.6-2.3) 08/24/25 09:35
Total Bilirubin 0.6 mg/dl (0.2-1.3) 08/21/25 06:24
AST 31 U/L (14-36) 08/21/25 06:24
ALT 33 U/L (0-35) 08/21/25 06:24
Alkaline Phosphatase 62 U/L (38-126) 08/21/25 06:24
Total Protein 8.4 g/dl (6.3-8.2) H 08/21/25 06:24
Albumin 4.9 g/dl (3.5-5.0) 08/21/25 06:24
Physical Exam
-
Gen: NAD
Abd: soft, nt, mild distention
Patient has a laboy catheter: No
Patient has a central line: No
--- NOTE | 2025-08-25 09:08 | W.DS.TRANS ---
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
-
Discharge Instructions:
Discharge Diagnosis/Procedures SBO
Diet Low Residue
Activity No restrictions
Instructions: Low-fiber diet
Stand-Alone Forms:
Changes to Home Medications: No
Discharge Medications:
DC Medications w/original date entered in [place]
amitriptyline 25 mg tablet 35 mg PO HS Mental Health/Anxiety 08/21/25
rosuvastatin 20 mg tablet 20 mg PO HS High Cholesterol 08/21/25
Home Medication Changes
Pending Results: No
--- NOTE | 2025-08-25 10:06 | CM ---
Patient discharged today
IMM signed yesterday - in chart
PLAN: Home no needs
== END 2025-08-25 10:00 | disposition home or self-care (01) | DRG 388 ==
LOC: 3 WEST ACU 10:30
PROVIDERS: Internal Medicine; Registered Nurse; Student in an Organized Health Care Education/Training Program; ADMITTING PHYSICIAN Hospitalist; ATTENDING PHYSICIAN Surgery; CONSULT PHYSICIAN Surgery; EMERGENCY PHYSICIAN Emergency Medicine; FAMILY PHYSICIAN Physician Assistant Medical
DX: K56.50 Intestinal adhesions [bands], unspecified as to partial versus complete obstruction (principal); E43 Unspecified severe protein-calorie malnutrition; E87.1 Hypo-osmolality and hyponatremia; E87.20 Acidosis, unspecified; Z68.1 Body mass index [BMI] 19.9 or less, adult; E87.6 Hypokalemia; E86.1 Hypovolemia; F32.A Depression, unspecified; F41.9 Anxiety disorder, unspecified; E87.5 Hyperkalemia
CPT/HCPCS: 71045; 74018; 74019; 74177; 80048; 80053; 81003; 81015; 82533; 83605; 83690; 83735; 83930; 83935; 84300; 84443; 85025; 85027; 96361; 96374; 96375; 99285; Q9967